=== PATIENT | male | born 1965 | race Caucasian/White ===

== ENCOUNTER → 2018-05-26 | Outpatient (CLI) | payer BC ==
[~2018-05-26] MED LIST: ALLEGRA ALLERG180 MG PO; LOTENSIN20 MG PO; LOTENSIN40 MG PO; MOBIC15 MG PO; VIAGRA25 MG PO
== END | disposition home or self-care (01) ==
LOC: OPR 05-20 08:00 → EDSTATUS 05-20 08:00 → OPR 07:26
PROC: 0FB13ZX Excision of Right Lobe Liver, Percutaneous Approach, Diagnostic (ICD-10-PCS; principal; 2018-05-26)
DX: K76.9 Liver disease, unspecified (principal); I10 Essential (primary) hypertension; Z87.891 Personal history of nicotine dependence
CPT/HCPCS: 77012; 88307; J3010